=== PATIENT | female | born 1940 | race Caucasian/White ===

== ENCOUNTER 2020-09-27 11:42 | Outpatient (REF) | payer MEDICARE, SELFPAY ==
[2020-09-27 14:18] LABS: Estimated Average Glucose 169 mg/dL; Hemoglobin A1c % 7.5 %
[2020-09-27 14:43] LABS: Alanine Aminotransferase 17 U/L (0-31); Alkaline Phosphatase 111 U/L (39-117); Anion Gap 12 (12-20); Aspartate Amino Transferase 29 U/L (5-31); Bilirubin Total 0.7 mg/dL (0.0-1.0); Blood Urea Nitrogen 10 mg/dL (9-16); Calcium 9.6 mg/dL (8.4-10.2); Carbon Dioxide 30 mmol/L (22-29); Chloride 102 mmol/L (96-108); Cholesterol 132 mg/dL; Estimated Glomerular Filt Rate > 60; Glucose Fasting 151 mg/dL (60-99); HDL Cholesterol 35 mg/dL; LDL Cholesterol Calculated 83 mg/dl; Potassium 4.5 mmol/l (3.3-5.1); Sodium 139 mmol/L (135-145); Total Protein 8.6 g/dL (6.5-8.0); Triglycerides 73 mg/dL
[2020-09-27 17:18] LABS: Creatinine Urine 74.59 mg/dL; Microalbum/Creatinine Ratio Ur 9.3 ug/mg cr
== END 2020-09-27 11:43 | disposition home or self-care (01) ==
LOC: HO.HMGCLDS 11:42
PROVIDERS: PCP Internal Medicine; Visit Provider Internal Medicine
DX: G57.93 Unspecified mononeuropathy of bilateral lower limbs (principal); E78.5 Hyperlipidemia, unspecified; E11.9 Type 2 diabetes mellitus without complications; E66.9 Obesity, unspecified
CPT/HCPCS: 80053; 80061; 82043; 83036

== ENCOUNTER 2020-11-24 | Outpatient (REF) | payer MEDICARE, SELFPAY | END 2020-11-25 15:24 | disposition home or self-care (01) | LOC: HO.LAB | PROVIDERS: Visit Provider Internal Medicine | DX: Z20.822 Contact with and (suspected) exposure to COVID-19 (principal) | CPT/HCPCS: 36415; U0003 ==

== ENCOUNTER 2020-11-25 16:02 | Outpatient (REF) | payer MEDICARE, SELFPAY | END 2020-11-25 16:03 | disposition home or self-care (01) | LOC: HO.LAB 16:02 | PROVIDERS: Visit Provider Nurse Practitioner Family | DX: Z13.89 Encounter for screening for other disorder (principal) ==

== ENCOUNTER 2021-05-08 10:55 | Outpatient (REF) | payer MEDICARE, SELFPAY ==
--- NOTE | ~2021-05-08 | XR_ITS ---
EXAMINATION: XR RIBS, LEFT CLINICAL INFORMATION: Pleurodynia. COMPARISON: Previous chest x-rays, most recent January 2020 TECHNIQUE: Three views of the left ribs and 1 view of the chest were obtained. FINDINGS: The cardiac and mediastinal contours are stable. The descending thoracic aorta is tortuous but unchanged. The lung volumes are low. The lungs are clear. There is no pleural effusion or pneumothorax. There are surgical clips in the left axilla. There are old left 4th and 5th rib fractures. No acute rib fracture is seen. There are degenerative changes of the thoracic spine and scoliosis. XR/XR ribs LT min 3V w CXR1V IMPRESSION: No evidence for acute disease in the chest. No acute rib fracture or bone lesion. Surgical clips in the left axilla.
[2021-05-08 14:04] LABS: Estimated Average Glucose 151 mg/dL; Hemoglobin A1c % 6.9 %
[2021-05-08 14:11] LABS: Creatinine Urine 174.09 mg/dL; Microalbum/Creatinine Ratio Ur 12.6 ug/mg cr
[2021-05-08 14:23] LABS: Alanine Aminotransferase 16 U/L (0-31); Albumin Level 3.8 g/dL (3.5-5.0); Alkaline Phosphatase 109 U/L (39-117); Anion Gap 11 (12-20); Aspartate Amino Transferase 29 U/L (5-31); Bilirubin Total 0.8 mg/dL (0.0-1.0); Blood Urea Nitrogen 11 mg/dL (9-16); Calcium 9.7 mg/dL (8.4-10.2); Carbon Dioxide 27 mmol/L (22-29); Chloride 105 mmol/L (96-108); Cholesterol 137 mg/dL; Estimated Glomerular Filt Rate > 60; Glucose Fasting 115 mg/dL (60-99); HDL Cholesterol 34 mg/dL; LDL Cholesterol Calculated 87 mg/dl; Potassium 4.4 mmol/L (3.3-5.1); Sodium 139 mmol/L (135-145); Total Protein 8.3 g/dL (6.5-8.0); Triglycerides 80 mg/dL
== END 2021-05-08 10:56 | disposition home or self-care (01) ==
LOC: HO.HMGCX 10:55
PROVIDERS: PCP Internal Medicine; Visit Provider Internal Medicine
DX: R07.81 Pleurodynia (principal); E78.5 Hyperlipidemia, unspecified; E66.9 Obesity, unspecified; E11.9 Type 2 diabetes mellitus without complications
CPT/HCPCS: 36415; 71101; 80053; 80061; 82043; 83036

== ENCOUNTER 2021-09-04 15:10 | Outpatient (REF) | payer MEDICARE, SELFPAY ==
--- NOTE | ~2021-09-04 | XR_ITS ---
EXAMINATION: XR CHEST CLINICAL INFORMATION: Encounter for general adult medical exam COMPARISON: Chest and left rib x-rays April 2021 TECHNIQUE: 2 views of the chest were obtained. FINDINGS: The cardiac and mediastinal contours are stable. The thoracic aorta is tortuous but unchanged. The lungs are clear. There is no pleural effusion or pneumothorax. There are degenerative changes of the thoracic spine and mild scoliosis. There are surgical clips in the left axilla. XR/XR chest 2V IMPRESSION: No evidence for acute disease in the chest.
[2021-09-04 16:55] LABS: Estimated Average Glucose 154 mg/dL
[2021-09-04 17:02] LABS: B Type Natriuretic Peptide 81 pg/mL (<100)
[2021-09-04 17:05] LABS: Alanine Aminotransferase 17 U/L (0-31); Alkaline Phosphatase 110 U/L (39-117); Anion Gap 14 (12-20); Aspartate Amino Transferase 32 U/L (5-31); Bilirubin Total 0.7 mg/dL (0.0-1.0); Blood Urea Nitrogen 11 mg/dL (9-16); Calcium 10.1 mg/dL (8.4-10.2); Carbon Dioxide 25 mmol/L (22-29); Chloride 102 mmol/L (96-108); Estimated Glomerular Filt Rate 58; Glucose Random 247 mg/dL (60-115); Sodium 137 mmol/L (135-145); Total Protein 8.8 g/dL (6.5-8.0)
== END 2021-09-04 15:11 | disposition home or self-care (01) ==
LOC: HO.HMGCLDS 15:10
PROVIDERS: PCP Internal Medicine; Visit Provider Internal Medicine
DX: Z00.00 Encounter for general adult medical examination without abnormal findings (principal); E78.5 Hyperlipidemia, unspecified; R05.9 Cough, unspecified; E11.9 Type 2 diabetes mellitus without complications
CPT/HCPCS: 36415; 71046; 80053; 83036; 83880

== ENCOUNTER 2021-12-08 10:18 | Outpatient (REF) | payer MEDICARE, SELFPAY ==
--- NOTE | ~2021-12-08 | MM_ITS ---
EXAMINATION: BONE DENSITOMETRY CLINICAL INDICATION: Age-related osteoporosis without current pathological fracture. COMPARISON: Baseline BD dated 10/02/2019. TECHNIQUE: Using a [employer] DXA System (software version: 13.1) manufactured by [employer], dual-energy x-ray absorptiometry was performed of the lumbar spine and left hip. The images are of good technical quality. Summary results are attached. FINDINGS: AP SPINE L1-L3 (excluding L4): The data of L1-L4 has been changed to exclude the L4 vertebral body, because at this level may cause overestimation of lumbar spine density. Current: BMD 1.112 g/cm2, Z-score 0.7, T-score -0.5, normal, 8.8% increase from baseline (<5% change is not significant). Baseline: BMD 1.022 g/cm2. LEFT FEMUR, NECK: Current: BMD 0.492 g/cm2, Z-score -2.2, T-score -3.9, osteoporosis. Baseline: BMD 0.514 g/cm2. LEFT FEMUR, TOTAL: Current: BMD 0.707 g/cm2, Z-score -0.9, T-score -2.4, osteopenia, 3.1% increase from baseline (<5% change is not significant). Baseline: BMD 0.686 g/cm2. IDENTIFIED RISK FACTORS: Renal, secondary osteoporosis, menopause. HISTORY OF FRACTURE: None listed. MEDICATIONS: Vitamin D. MM/XR DEXA axial skeleton IMPRESSION: 1. DIAGNOSIS: Osteoporosis based on the lowest T-score value of -3.9 in the femoral neck applying World Health Organization criteria. 2. 10-YEAR FRACTURE RISK PREDICTION, FRAX: Major osteoporotic fracture (clinical spine, forearm, hip or shoulder) 22.1%. Hip fracture 10.9%. 3. Treatment Recommendations: NOF guidelines recommend consideration for treatment in postmenopausal women and men age 50 and older presenting with the following: -A hip or vertebral (clinical or morphometric) fracture. -T-score less than or equal to -2.5 at the femoral neck or spine after appropriate evaluation to exclude secondary causes. -Low bone mass at the hip or spine and a 10-year fracture probability by FRAX of greater than or equal to 3% for hip fracture or greater than or equal to 20% for major osteoporotic fracture based on the [place] adapted WHO algorithm. 4. Other Recommendations: All treatment decisions require clinical judgment and consideration of individual patient factors, including patient preferences, comorbidities, previous drug use, risk factors not captured in the FRAX model (e.g. frailty, falls, vitamin D deficiency, increased bone turnover, interval significant decline in bone density) and possible under or overestimation of fracture risk by FRAX. Additional medical evaluation for secondary cause of low bone mineral density may be appropriate. FUTURE SCAN RECOMMENDATION: People with diagnosed cases of osteoporosis or at high risk for fracture should have regular bone mineral density tests. For patients eligible for Medicare, routine testing is allowed once every 2 years. The testing frequency can be increased to one year for patients who have rapidly progressing disease, those who are receiving or discontinuing medical therapy to restore bone mass, or have additional risk factors.
== END 2021-12-08 10:19 | disposition home or self-care (01) ==
LOC: HO.MAMMO 10:18
PROVIDERS: PCP Internal Medicine; Visit Provider Internal Medicine
DX: Z13.820 Encounter for screening for osteoporosis (principal); M81.0 Age-related osteoporosis without current pathological fracture; Z78.0 Asymptomatic menopausal state; Z79.899 Other long term (current) drug therapy
CPT/HCPCS: 77080

== ENCOUNTER 2022-06-21 12:21 | Outpatient (REF) | payer MEDICARE, SELFPAY ==
[2022-06-21 13:49] LABS: MANUAL DIFF FLAG NO
[2022-06-21 13:56] LABS: Appearance Urine HAZY; Color Urine YELLOW; Glucose Urine UA NEG (NEG); Leukocyte Esterase Urine 3+ (NEG); Nitrite Urine NEG (NEG); Specific Gravity - Urine 1.015 (1.005-1.025); UACC Culture Trigger YES; Urine Blood TRACE (NEG); Urine Ketones NEG (NEG); Urine Protein NEG (NEG-TRACE)
[2022-06-21 14:04] LABS: Estimated Average Glucose 140 mg/dL; Hemoglobin A1c % 6.5 %
[2022-06-21 14:04] LABS: Squamous Epithelial Cell Urine 2+ /LPF
[2022-06-21 14:05] LABS: Bacteria Urine 4+ /LPF; WBC Urine TNTC /HPF (0-4)
[2022-06-21 14:06] LABS: WBC Clumps Urine NOTED
[2022-06-21 14:07] LABS: RBC Urine 0 /HPF (0)
[2022-06-21 14:14] LABS: Alanine Aminotransferase 13 U/L (0-31); Albumin Level 3.9 g/dL (3.5-5.0); Alkaline Phosphatase 107 U/L (39-117); Anion Gap 11 (12-20); Aspartate Amino Transferase 29 U/L (5-31); Bilirubin Total 0.6 mg/dL (0.0-1.0); Blood Urea Nitrogen 9 mg/dL (9-16); Calcium 9.3 mg/dL (8.4-10.2); Carbon Dioxide 28 mmol/L (22-29); Chloride 106 mmol/L (96-108); Estimated Glomerular Filt Rate > 60; Glucose Random 86 mg/dL (60-115); Potassium 4.1 mmol/L (3.3-5.1); Sodium 141 mmol/L (135-145); Total Protein 8.5 g/dL (6.5-8.0)
[2022-06-21 18:06] LABS: Basophils Percent Auto 0.7 % (0-2); Eosinophils Absolute Auto 0.1 X10*3/uL (0.0-0.4); Eosinophils Percent Auto 2.6 % (0-4); Hematocrit 36.9 % (37.0-47.0); Hemoglobin 11.7 g/dl (12.0-16.0); Imm Gran Abs Auto 0.01 X10*3/uL (0.00-0.03); Imm Gran Pct Auto 0.2 % (0.0-0.4); Lymphocytes Absolute Auto 1.5 X10*3/uL (1.2-4.9); Lymphocytes Percent Auto 36.3 % (20-40); Mean Corpuscular HGB Conc 31.7 g/dl (31.0-35.0); Mean Corpuscular Hemoglobin 31.3 pg (27.0-33.0); Mean Corpuscular Volume 98.7 fL (80.0-98.0); Mean Platelet Volume 11.6 fL (9.4-12.3); Monocytes Absolute Auto 0.4 X10*3/uL (0.1-1.2); Monocytes Percent Auto 10.2 % (2-11); Neutrophils Absolute Auto 2.1 x10*3/uL (2.0-8.3); Platelet Count 119 X10*3/uL (160-400); Red Blood Count 3.74 X10*6/uL (4.20-5.50); Red Cell Distribution Width 12.8 % (11.0-16.0); White Blood Count 4.2 X10*3/uL (4.8-10.8)
[2022-06-25 00:13] LABS: DRVVT 1:1 Mix Interpretation Not Indicated; Hexagonal Phase Neutralization Negative (Negative); PTT (LAC) Screen 42 sec (<=40)
[2022-06-26 23:02] LABS: PES - Abn Protein Band 1 1.7 g/dL (NONE DETECTED); Prot Elec - Albumin 3.9 g/dL (3.8-4.8); Prot Elec - Alpha1 0.3 g/dL (0.2-0.3); Prot Elec - Alpha2 0.8 g/dL (0.5-0.9); Prot Elec - Beta 1 0.4 g/dL (0.4-0.6); Prot Elec - Beta 2 0.5 g/dL (0.2-0.5); Prot Elec - Gamma 2.7 g/dL (0.8-1.7); Prot Elec - Total Protein 8.5 g/dL (6.1-8.1)
== END 2022-06-21 12:22 | disposition home or self-care (01) ==
LOC: HO.HMGCLDS 12:21
PROVIDERS: PCP Internal Medicine; Visit Provider Internal Medicine
DX: E78.5 Hyperlipidemia, unspecified (principal); I26.99 Other pulmonary embolism without acute cor pulmonale; E11.9 Type 2 diabetes mellitus without complications; Z20.822 Contact with and (suspected) exposure to COVID-19
CPT/HCPCS: 36415; 80053; 81001; 83036; 84165; 85025; 85597; 85613; 85730; 87086; 87088; 87186

== ENCOUNTER 2022-07-05 14:54 | Emergency (ER) | payer MEDICARE, SELFPAY ==
--- NOTE | ~2022-07-05 | XR_ITS ---
EXAMINATION: XR CHEST CLINICAL INFORMATION: Weakness COMPARISON: Chest x-ray 09/04/2021 TECHNIQUE: Frontal view of the chest was obtained. FINDINGS: The lungs appear clear. No airspace consolidation, pleural effusion, or pneumothorax. Cardiomediastinal silhouette is unchanged. No cardiomegaly or evidence pulmonary edema. Tortuosity of the descending thoracic aorta redemonstrated. No acute osseous injury. Surgical clips project along the lateral left chest wall, unchanged. XR/XR chest 1V IMPRESSION: No acute pulmonary process.
--- NOTE | ~2022-07-05 | CT_ITS ---
EXAMINATION: CT HEAD WITHOUT CONTRAST CLINICAL INFORMATION: Headache COMPARISON: None TECHNIQUE: Contiguous axial imaging was performed from the skull base to vertex without intravenous administration of contrast. This CT examination was performed using dose optimization techniques as appropriate, variously including the following: *Automated exposure control *Adjustment of mA and/or kV according to patient size (this includes techniques or standardized protocols for targeted exams where dose is matched to indication/reason for exam; i.e. extremities or head) *Use of iterative reconstruction technique DLP: 731 mGy-cm FINDINGS: There is no evidence of acute intracranial hemorrhage or territorial infarction. No abnormal mass effect or midline shift is seen. Wilde to white matter differentiation is well preserved. No extra-axial fluid collections are identified. Patchy periventricular and deep white matter hypodensities suggestive of chronic microangiopathic ischemic changes. No acute calvarial fracture. The mastoid air cells and visualized portions of the paranasal sinuses are well aerated. CT/CT head/brain wo con IMPRESSION: No CT evidence of acute intracranial pathology.
[2022-07-05 16:11] VITALS: BP 139/64; BP 170/95; PULSE 66; PULSE 79; RESP 22; TEMP 37.2; O2SAT 95; O2SAT 97; BMI 31.7
--- NOTE | 2022-07-05 16:24 | ECG_ITS ---
Test Reason : WEAKNESS Blood Pressure : / mmHG Vent. Rate : 056 BPM Atrial Rate : 056 BPM P-R Int : 146 ms QRS Dur : 106 ms QT Int : 448 ms P-R-T Axes : 008 -43 -14 degrees QTc Int : 432 ms Sinus bradycardia Left axis deviation Incomplete right bundle branch block Abnormal ECG No previous ECGs available Referred By: Tejas Gomez Electronically Signed By:DEBBIE WANG
--- NOTE | 2022-07-05 16:26 | ED.GENADULT ---
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 headache started since last night as a gradual onset of headache progressively getting worse since yesterday, headache is localized to the occipital area radiate down to the neck and right shoulder, no neck stiffness or photophobia, no nausea or vomiting, no weakness or numbness, associated with bilateral ear pain, no fever or chills, no sick contact, no covid symptoms, no runny nose or coughing, no cp, no sob, no abd pain, no diarrhea, normal BM yesterday, patient in the ED feels hungry and asking for food. headache and neck pain is more with movement or lifting right shoulder above her head. Patient declined any trauma or heavy lifting. Related Data Home Medications Medication Instructions Recorded Confirmed alcohol swabs (Alcohol Pads) pad topical 09/27/20 07/05/22 blood sugar diagnostic #10 ea 09/27/20 07/05/22 albuterol sulfate 90 mcg/actuation 2 puff inhalation Q8H asthma 06/29/22 07/05/22 aerosol inhaler (ProAir HFA) apixaban 5 mg (74 tabs) tablets in 5 ea PO DIRECTED 06/29/22 07/05/22 a dose pack (Elilifeaction gamesis DVT-PE Treat 30D Start) atorvastatin 40 mg tablet (Lipitor) 40 mg PO DAILY 06/29/22 07/05/22 cholecalciferol (vitamin D3) 50 50 mcg PO DAILY 06/29/22 07/05/22 mcg (2,000 unit) capsule (Vitamin D3) insulin glargine 100 unit/mL 40 unit subcut DAILY 06/29/22 07/05/22 subcutaneous solution (Lantus U-100 Insulin) Previous Rx's Medication Instructions Recorded diabetic supplies, miscellan. #1 ea 09/27/20 ProAir HFA 90 mcg/actuation 2 puff inhalation Q6H PRN 09/04/21 aerosol inhaler (albuterol sulfate) shortness of breath or wheezing #8.5 grams insulin lispro 100 unit/mL See Rx Instructions subcut 12/19/21 subcutaneous solution USEASDIRECTD 30 days #10 mL lancets 30 gauge #300 ea 12/27/21 insulin syringe-needle U-100 0.5 #400 ea 01/25/22 mL 31 gauge x 03/26 pen needle, diabetic 32 gauge x #300 ea 05/04/22 1/4 nitrofurantoin 100 mg PO Q12H 7 days #14 caps 06/22/22 monohydrate/macrocrystals 100 mg capsule (Macrobid) cyclobenzaprine 10 mg tablet 10 mg PO BID PRN muscle spasm #20 07/05/22 tabs nitrofurantoin 100 mg PO BID #14 caps 07/05/22 monohydrate/macrocrystals 100 mg capsule (Macrobid) Allergies Allergy/AdvReac Type Severity Reaction Status Date / Time Seasonal Allergies Allergy Runny Nose Verified 07/05/22 14:00 Review of Systems Review of Systems: All other systems are reviewed and are negative Constitutional: Reports as per HPI and Reports no additional constitutional complaints Eyes: Reports as per HPI and Reports no additional eye complaints Reports system reviewed and no additional complaints, except as documented Cardiovascular: Reports as per HPI and Reports no additional cardiovascular complaints Respiratory: Reports as per HPI and Reports no additional respiratory complaints Gastrointestinal: Reports as per HPI and Reports no additional gastrointestinal complaints Genitourinary: Reports no additional female genitourinary complaints Musculoskeletal: Reports no additional musculoskeletal complaints Skin/Breast: Reports system reviewed and no additional complaints, except as docu Psychiatric: Reports no additional psychiatric complaints Endocrine: Reports no additional endocrine complaints Hematologic/Lymphatic: Reports no additional hematologic/lymphatic complaints Allergic/Immunologic: Reports no additional allergic/immunologic complaints Reports system reviewed and no additional complaints, except as documented and Reports Abnormal speech present FOR[facility] Past Medical History Medical History Annual physical exam Cough Diabetes Fibromyalgia Hyperlipidemia Neuropathy of both feet Obesity Osteoarthritis of both knees Osteoporosis Rib pain on left side Surgical History No pertinent past surgical history S/P lumpectomy, left breast Status post cataract surgery Family History Family History Father Colon cancer Mother Diabetes mellitus Other Substance use disorder Social History Social History Household Members: None Housing: Apartment Alcohol intake: never Patient Tobacco Use Status: Never used Tobacco e-Cigarette/Vaping Use: Never Used Advance Directives: No Advance Directives Information Provided: No service: No Current occupational status: retired Cognitive needs: No Hearing needs: No Vision needs: No Physical Exam ED Vital Signs: Vital Signs - 24 hr 07/05/22 16:11 07/05/22 19:21 Temperature 98.9 F Pulse Rate 66 77 Respiratory Rate 22 H 16 Blood Pressure 139/64 131/67 Pulse Oximetry 97 98 Oxygen Delivery Method Room Air Room Air BMI result Body Mass Index 31.7 vital signs have been reviewed as appeared to be correct. Blood pressure normal. Heart rate normal. Respiration rate normal. Temperature normal. Oxygen saturation normal. Appearance: Alert. Oriented X3. No acute distress. Head: Normal external exam. Normocephalic. Atraumatic. No Richardson signs noted. No raccoon eyes noted , increases neck pain and right shoulder pain turned the head to the right Eyes: PERRLA. EOMI. Conjunctiva and sclera normal. Eyelids normal. ENT: TM's Normal. Pharynx normal. Uvula midline. Moist mucous membranes. No trismus noted. No drooling noted. No muffled voice noted. Neck: Normal inspection. Neck supple. FROM. No adenopathy. Thyroid Normal. No meningeal signs. No neck mass noted. CVS: Normal heart rate and rhythm. Heart sound normal. No murmurs noted. Pulses normal throughout. Respiratory: No respiratory distress. Painless inspiration. Breath sounds normal. No wheezes/rales/rhonchi noted. Chest nontender. No accessory muscle usage noted or decreased air movement noted. Abdomen: Soft and nontender. Bowel sounds normal in all 4 quadrants. No distention noted. No organomegaly noted. No visible injury noted. Back: No CVA tenderness. Full range of motion noted. Skin: Skin warm and dry. Normal skin color. Normal skin turgor. No rashes/lesions/lacerations noted. Extremities: No lower extremity edema. Extremities exhibit normal range of motion. Extremities nontender. Neuro: Oriented X 3. Cranial nerve exam: II-XII are grossly intact No motor deficit. No sensory deficit. Reflexes normal. Course Course Course Narrative: 82-year-old female came in for head, neck pain, and right shoulder pain started since yesterday, physical exam, your exam, and head CT is consistent with musculoskeletal underlying close, repeat Neuro exam is unremarkable. There was a concern of another PE patient is on Eliquis, normal RR and O2 sat Patient has no chest pain or SOB. will start on Macrobid for UTI and patient was encouraged to drink plenty of fluids. was instructed to return if worsening of symptoms. Medical Decision Making Lab Data Lab results reviewed: Yes I reviewed the patient's lab results. Result diagrams: 07/05/22 16:35 07/05/22 16:35 Labs: Lab Results 07/05/22 07/05/22 07/05/22 Range/Units 16:35 16:35 16:35 WBC 6.0 (4.8-10.8) X10*3/uL RBC 3.64 L (4.20-5.50) X10*6/uL Hgb 11.4 L (12.0-16.0) g/dl Hct 35.3 L (37.0-47.0) % MCV 97.0 (80.0-98.0) fL MCH 31.3 (27.0-33.0) pg MCHC 32.3 (31.0-35.0) g/dl RDW 12.6 (11.0-16.0) % Plt Count 154 L D (160-400) X10*3/uL MPV 9.7 (9.4-12.3) fL Immature Gran % (Auto) 0.3 (0.0-0.4) % Neut % (Auto) 63.7 (45-73) % Lymph % (Auto) 25.2 (20-40) % [place] % (Auto) 8.1 (2-11) % Eos % (Auto) 2.2 (0-4) % Baso % (Auto) 0.5 (0-2) % Lymph # (Auto) 1.5 (1.2-4.9) X10*3/uL [place] # (Auto) 0.5 (0.1-1.2) X10*3/uL Eos # (Auto) 0.1 (0.0-0.4) X10*3/uL Baso # (Auto) 0.0 (0.0-0.2) X10*3/uL Abs Immat Gran (auto) 0.02 (0.00-0.03) X10*3/uL Absolute Neuts (auto) 3.8 (2.0-8.3) x10*3/uL Absolute Nucleated RBC 0.000 (0.0-0.012) X10*3/uL Nucleated RBC % (auto) 0.0 (0.0-0.2) /100WBC Sodium 140 (135-145) mmol/L Potassium 4.5 (3.3-5.1) mmol/L Chloride 104 (96-108) mmol/L Carbon Dioxide 26 (22-29) mmol/L Anion Gap 15 (12-20) BUN 11 (9-16) mg/dL Creatinine 0.77 (0.5-1.4) mg/dL Estim Creat Clear Calc 61.0 Estimated GFR > 60 POC Glucose (60-115) mg/dL Random Glucose 120 H (60-115) mg/dL Calcium 9.9 D (8.4-10.2) mg/dL Total Bilirubin 0.7 (0.0-1.0) mg/dL Direct Bilirubin 0.3 (0.0-0.5) mg/dL AST 29 (5-31) U/L ALT 15 (0-31) U/L Alkaline Phosphatase 106 (39-117) U/L Troponin I High Sens < 3.5 (<3.5-17.0) ng/L B-Natriuretic Peptide (<100) pg/mL Total Protein 8.7 H (6.5-8.0) g/dL Albumin 3.8 (3.5-5.0) g/dL Lipase 8 (8-78) U/L Urine Color Urine Appearance Urine pH (5.0-8.0) Ur Specific [place] (1.005-1.025) Urine Protein (Neg-Trace) mg/dL Urine Glucose (UA) (Negative) mg/dL Urine Ketones (Negative) mg/dL Urine Blood (Negative) Urine Nitrite (Negative) Ur Leukocyte Esterase (Negative) Urine RBC (0-2) /HPF Urine WBC (0-5) /HPF Ur Squamous Epith Cells (0-2) /HPF Urine Bacteria (None Seen) Hyaline Casts (0-2) /LPF COVID-19 (MELANIE) (Negative) COVID-19 Clin Com 07/05/22 07/05/22 07/05/22 Range/Units 16:35 17:19 18:13 WBC (4.8-10.8) X10*3/uL RBC (4.20-5.50) X10*6/uL Hgb (12.0-16.0) g/dl Hct (37.0-47.0) % MCV (80.0-98.0) fL MCH (27.0-33.0) pg MCHC (31.0-35.0) g/dl RDW (11.0-16.0) % Plt Count (160-400) X10*3/uL MPV (9.4-12.3) fL Immature Gran % (Auto) (0.0-0.4) % Neut % (Auto) (45-73) % Lymph % (Auto) (20-40) % [place] % (Auto) (2-11) % Eos % (Auto) (0-4) % Baso % (Auto) (0-2) % Lymph # (Auto) (1.2-4.9) X10*3/uL [place] # (Auto) (0.1-1.2) X10*3/uL Eos # (Auto) (0.0-0.4) X10*3/uL Baso # (Auto) (0.0-0.2) X10*3/uL Abs Immat Gran (auto) (0.00-0.03) X10*3/uL Absolute Neuts (auto) (2.0-8.3) x10*3/uL Absolute Nucleated RBC (0.0-0.012) X10*3/uL Nucleated RBC % (auto) (0.0-0.2) /100WBC Sodium (135-145) mmol/L Potassium (3.3-5.1) mmol/L Chloride (96-108) mmol/L Carbon Dioxide (22-29) mmol/L Anion Gap (12-20) BUN (9-16) mg/dL Creatinine (0.5-1.4) mg/dL Estim Creat Clear Calc Estimated GFR POC Glucose 95 (60-115) mg/dL Random Glucose (60-115) mg/dL Calcium (8.4-10.2) mg/dL Total Bilirubin (0.0-1.0) mg/dL Direct Bilirubin (0.0-0.5) mg/dL AST (5-31) U/L ALT (0-31) U/L Alkaline Phosphatase (39-117) U/L Troponin I High Sens (<3.5-17.0) ng/L B-Natriuretic Peptide 48 (<100) pg/mL Total Protein (6.5-8.0) g/dL Albumin (3.5-5.0) g/dL Lipase (8-78) U/L Urine Color Urine Appearance Urine pH (5.0-8.0) Ur Specific [place] (1.005-1.025) Urine Protein (Neg-Trace) mg/dL Urine Glucose (UA) (Negative) mg/dL Urine Ketones (Negative) mg/dL Urine Blood (Negative) Urine Nitrite (Negative) Ur Leukocyte Esterase (Negative) Urine RBC (0-2) /HPF Urine WBC (0-5) /HPF Ur Squamous Epith Cells (0-2) /HPF Urine Bacteria (None Seen) Hyaline Casts (0-2) /LPF COVID-19 (MELANIE) Negative (Negative) COVID-19 Clin Com See Note 07/05/22 Range/Units 19:00 WBC (4.8-10.8) X10*3/uL RBC (4.20-5.50) X10*6/uL Hgb (12.0-16.0) g/dl Hct (37.0-47.0) % MCV (80.0-98.0) fL MCH (27.0-33.0) pg MCHC (31.0-35.0) g/dl RDW (11.0-16.0) % Plt Count (160-400) X10*3/uL MPV (9.4-12.3) fL Immature Gran % (Auto) (0.0-0.4) % Neut % (Auto) (45-73) % Lymph % (Auto) (20-40) % [place] % (Auto) (2-11) % Eos % (Auto) (0-4) % Baso % (Auto) (0-2) % Lymph # (Auto) (1.2-4.9) X10*3/uL [place] # (Auto) (0.1-1.2) X10*3/uL Eos # (Auto) (0.0-0.4) X10*3/uL Baso # (Auto) (0.0-0.2) X10*3/uL Abs Immat Gran (auto) (0.00-0.03) X10*3/uL Absolute Neuts (auto) (2.0-8.3) x10*3/uL Absolute Nucleated RBC (0.0-0.012) X10*3/uL Nucleated RBC % (auto) (0.0-0.2) /100WBC Sodium (135-145) mmol/L Potassium (3.3-5.1) mmol/L Chloride (96-108) mmol/L Carbon Dioxide (22-29) mmol/L Anion Gap (12-20) BUN (9-16) mg/dL Creatinine (0.5-1.4) mg/dL Estim Creat Clear Calc Estimated GFR POC Glucose (60-115) mg/dL Random Glucose (60-115) mg/dL Calcium (8.4-10.2) mg/dL Total Bilirubin (0.0-1.0) mg/dL Direct Bilirubin (0.0-0.5) mg/dL AST (5-31) U/L ALT (0-31) U/L Alkaline Phosphatase (39-117) U/L Troponin I High Sens (<3.5-17.0) ng/L B-Natriuretic Peptide (<100) pg/mL Total Protein (6.5-8.0) g/dL Albumin (3.5-5.0) g/dL Lipase (8-78) U/L Urine Color Yellow Urine Appearance Clear Urine pH 7.0 (5.0-8.0) Ur Specific [place] <= 1.005 (1.005-1.025) Urine Protein Negative (Neg-Trace) mg/dL Urine Glucose (UA) Negative (Negative) mg/dL Urine Ketones Negative (Negative) mg/dL Urine Blood Negative (Negative) Urine Nitrite Negative (Negative) Ur Leukocyte Esterase Large (3+) H (Negative) Urine RBC 0-2 (0-2) /HPF Urine WBC 21-50 H (0-5) /HPF Ur Squamous Epith Cells 0-2 (0-2) /HPF Urine Bacteria 4+ (None Seen) Hyaline Casts 0-2 (0-2) /LPF COVID-19 (MELANIE) (Negative) COVID-19 Clin Com Imaging Data CT scan - head: Attestation: I personally reviewed and interpreted this imaging study as follows: Radiologist's impression: No CT evidence of acute intracranial pathology. ? Chest x-ray: Attestation: I personally reviewed and interpreted this imaging study as follows: Radiologist's impression: no acute pulmonary process. Discharge Plan Discharge Clinical Impression: Acute myofascial pain Patient Disposition: Home, Self-Care Instructions: Musculoskeletal Pain (ED) Prescriptions: New cyclobenzaprine 10 mg tablet 10 mg PO BID PRN (Reason: muscle spasm) Qty: 20 0RF nitrofurantoin monohyd/m-cryst [Macrobid] 100 mg capsule 100 mg PO BID Qty: 14 0RF Rx Instructions: must administer with a meal/food No Action insulin lispro 100 unit/mL solution See Rx Instructions subcut USEASDIRECTD 30 Days Qty: 10 0RF Rx Instructions: 120-200 4units, 200-300 8units, >300 10 units subcut 3times at day at mealtime subcut use as directed; (DME) lancets 30 gauge misc See Rx Instructions .ROUTE QID Qty: 300 3RF Rx Instructions: As directed to test blood sugar up to 3 times per day (DME) insulin syringe-needle U-100 0.5 mL 31 gauge x 5/16 syringe See Rx Instructions .ROUTE .MEDSUPPLY Qty: 400 3RF Rx Instructions: Use to inject insulin 4 times per day (DME) pen needle, diabetic 32 gauge x 1/4 needle See Rx Instructions subcut TID Qty: 300 3RF Rx Instructions: As directed to inject insulin four times a day nitrofurantoin monohyd/m-cryst [Macrobid] 100 mg capsule 100 mg PO Q12H 7 Days Qty: 14 0RF Rx Instructions: must administer with a meal/food Eliquis DVT-PE Treat 30D Start 5 mg (74 tabs) tablets,dose pack 5 ea PO DIRECTED albuterol sulfate [ProAir HFA] 90 mcg/actuation HFA aerosol inhaler 2 puff inhalation Q8H atorvastatin [Lipitor] 40 mg tablet 40 mg PO DAILY insulin glargine [Lantus U-100 Insulin] 100 unit/mL solution 40 unit subcut DAILY cholecalciferol (vitamin D3) [Vitamin D3] 50 mcg (2,000 unit) capsule 50 mcg PO DAILY (DME) Accu-Chek Guide test strips Strip See Rx Instructions .ROUTE .MEDSUPPLY Qty: 10 Rx Instructions: As directed alcohol swabs [Alcohol Pads] Pads, Medicated topical (DME) diabetic supplies, miscellan. Misc See Rx Instructions .ROUTE .MEDSUPPLY Qty: 1 0RF Rx Instructions: diabetic shoes albuterol sulfate [ProAir HFA] 90 mcg/actuation HFA aerosol inhaler 2 puff inhalation Q6H PRN (Reason: shortness of breath or wheezing) Qty: 8.5 3RF Rx Instructions: brand name only Referrals: Jing Yen MD [Primary Care Provider] -
[2022-07-05 16:41] LABS: MANUAL DIFF FLAG NO
[2022-07-05 16:44] LABS: Basophils Percent Auto 0.5 % (0-2); Eosinophils Absolute Auto 0.1 X10*3/uL (0.0-0.4); Eosinophils Percent Auto 2.2 % (0-4); Hematocrit 35.3 % (37.0-47.0); Hemoglobin 11.4 g/dl (12.0-16.0); Imm Gran Abs Auto 0.02 X10*3/uL (0.00-0.03); Imm Gran Pct Auto 0.3 % (0.0-0.4); Lymphocytes Absolute Auto 1.5 X10*3/uL (1.2-4.9); Lymphocytes Percent Auto 25.2 % (20-40); Mean Corpuscular HGB Conc 32.3 g/dl (31.0-35.0); Mean Corpuscular Hemoglobin 31.3 pg (27.0-33.0); Mean Platelet Volume 9.7 fL (9.4-12.3); Monocytes Absolute Auto 0.5 X10*3/uL (0.1-1.2); Monocytes Percent Auto 8.1 % (2-11); Neutrophils Absolute Auto 3.8 x10*3/uL (2.0-8.3); Neutrophils Percent Auto 63.7 % (45-73); Platelet Count 154 X10*3/uL (160-400); Red Blood Count 3.64 X10*6/uL (4.20-5.50); Red Cell Distribution Width 12.6 % (11.0-16.0)
[2022-07-05] MEDS: Acetaminophen 325 MG TABLET 650 MG PO (16:46)
[2022-07-05] MEDS: 0.9 % Sodium Chloride 1,000 ML 999 ML IV (16:47)
[2022-07-05 17:03] LABS: B Type Natriuretic Peptide 48 pg/mL (<100); Troponin-I High Sensitivity < 3.5 ng/L (<3.5-17.0)
[2022-07-05 17:09] LABS: Alanine Aminotransferase 15 U/L (0-31); Albumin Level 3.8 g/dL (3.5-5.0); Alkaline Phosphatase 106 U/L (39-117); Anion Gap 15 (12-20); Aspartate Amino Transferase 29 U/L (5-31); Bilirubin Direct 0.3 mg/dL (0.0-0.5); Bilirubin Total 0.7 mg/dL (0.0-1.0); Blood Urea Nitrogen 11 mg/dL (9-16); Calcium 9.9 mg/dL (8.4-10.2); Carbon Dioxide 26 mmol/L (22-29); Chloride 104 mmol/L (96-108); Estimated Glomerular Filt Rate > 60; Glucose Random 120 mg/dL (60-115); Lipase 8 U/L (8-78); Potassium 4.5 mmol/L (3.3-5.1); Sodium 140 mmol/L (135-145); Total Protein 8.7 g/dL (6.5-8.0)
[2022-07-05 17:47] LABS: COVID-19 Test Negative (Negative)
[2022-07-05 18:17] LABS: Glucose, Whole Blood 95 mg/dL (60-115)
[2022-07-05 19:09] LABS: Appearance Urine Clear; Color Urine Yellow; Glucose Urine UA Negative (Negative); Leukocyte Esterase Urine Large (3+) (Negative); Nitrite Urine Negative (Negative); Specific Gravity - Urine <= 1.005 (1.005-1.025); Urine Blood Negative (Negative); Urine Ketones Negative (Negative); Urine Protein Negative (Neg-Trace)
[2022-07-05 19:12] LABS: Bacteria Urine 4+ (None Seen); Hyaline Casts Urine 0-2 /LPF (0-2); RBC Urine 0-2 /HPF (0-2); Squamous Epithelial Cell Urine 0-2 /HPF (0-2); UACC Culture Trigger YES; WBC Urine 21-50 /HPF (0-5)
[2022-07-05 19:21] VITALS: BP 131/67; PULSE 77; RESP 16; O2SAT 98
[2022-07-05] MEDS: Morphine Sulfate 2 MG/ML CARTRIDGE 1 MG IVPUSH (19:36)
[2022-07-05 20:00] VITALS: BP 148/70; PULSE 68
== END 2022-07-05 21:10 | disposition home or self-care (01) ==
PROVIDERS: Emergency Provider Emergency Medicine; PCP Internal Medicine
DX: M79.10 Myalgia, unspecified site (principal); R51.9 Headache, unspecified; R53.1 Weakness; Z20.822 Contact with and (suspected) exposure to COVID-19; E11.9 Type 2 diabetes mellitus without complications; E78.5 Hyperlipidemia, unspecified; Z86.711 Personal history of pulmonary embolism; Z79.02 Long term (current) use of antithrombotics/antiplatelets; Z79.01 Long term (current) use of anticoagulants; Z79.4 Long term (current) use of insulin; Z79.899 Other long term (current) drug therapy
CPT/HCPCS: 36415; 70450; 71045; 80048; 80076; 81001; 82947; 83690; 83880; 84484; 85025; 87086; 87088; 87186; 87635; 93005; 96361; 96374; 99284; J2270

== ENCOUNTER 2022-07-19 14:19 | Outpatient (REF) | payer MEDICARE, SELFPAY ==
--- NOTE | ~2022-07-19 | US_ITS ---
EXAMINATION: US RETROPERITONEAL LIMITED (RENAL ONLY) CLINICAL INFORMATION: Hyperlipidemia, gross hematuria. COMPARISON: None TECHNIQUE: Real-time imaging of the kidneys. FINDINGS: RIGHT KIDNEY: 10.8 x 5.8 x 6.2 cm (SAG x AP x TRV). The kidney is normal in size, contour, and echogenicity. Renal cortical thickness is normal. No calculi or focal parenchymal lesions. No hydronephrosis. LEFT KIDNEY: 11.3 x 6.4 x 6.2 cm (SAG x AP x TRV). The kidney is normal in size, contour, and echogenicity. Renal cortical thickness is normal. No calculi or focal parenchymal lesions. No hydronephrosis. US/US renal BI IMPRESSION: Unremarkable sonographic imaging of the kidneys. Specifically, no renal calculi or hydronephrosis of either kidney.
== END 2022-07-19 14:20 | disposition home or self-care (01) ==
LOC: HO.HMGCX 14:19
PROVIDERS: PCP Internal Medicine; Visit Provider Internal Medicine
DX: R31.0 Gross hematuria (principal); E78.5 Hyperlipidemia, unspecified
CPT/HCPCS: 76775

== ENCOUNTER 2022-08-06 13:37 | Outpatient (REF) | payer MEDICARE, SELFPAY ==
--- NOTE | ~2022-08-06 | US_ITS ---
EXAMINATION: US PELVIS LIMITED (BLADDER) CLINICAL INFORMATION: Gross hematuria. COMPARISON: Ultrasound renal 07/19/2022. TECHNIQUE: Real-time imaging of the bladder. FINDINGS: BLADDER: Well distended and normal. Bilateral ureteral jets are demonstrated. Prevoid bladder volume is 452 mL. Postvoid bladder volume is 10.3 mL. US/US bladder IMPRESSION: Unremarkable bladder ultrasound..
== END 2022-08-06 13:38 | disposition home or self-care (01) ==
LOC: HO.HMGCX 13:37
PROVIDERS: PCP Internal Medicine; Visit Provider Internal Medicine
DX: R31.0 Gross hematuria (principal)
CPT/HCPCS: 76857

== ENCOUNTER 2022-09-20 15:15 | Outpatient (REF) | payer OTHER, SELFPAY ==
--- NOTE | ~2022-09-20 | CT_ITS ---
EXAMINATION: CT ANGIOGRAM OF THE CHEST WITH AND WITHOUT CONTRAST (CT PULMONARY ANGIOGRAM FOR PE) CLINICAL INFORMATION: Reason for Exam h/o pE in may 2022, [facility] COMPARISON: Previous chest x-ray June 2022 TECHNIQUE: Prior to contrast administration, noncontrast localization images were obtained. Subsequently, multidetector volumetric imaging was performed from the thoracic inlet to below the diaphragms following the administration of 65 mL Omnipaque 350 intravenous contrast. No contrast reaction reported Sagittal, coronal, and MIP oblique sagittal reformatted images were obtained on the CT workstation, uploaded to PACS, and reviewed. This CT examination was performed using dose optimization techniques as appropriate, variously including the following: *Automated exposure control *Adjustment of mA and/or kV according to patient size (this includes techniques or standardized protocols for targeted exams where dose is matched to indication/reason for exam; i.e. extremities or head) *Use of iterative reconstruction technique Total exam dose-length product 91 mGy-cm FINDINGS: QUALITY OF STUDY/CONTRAST BOLUS: Satisfactory. PULMONARY ARTERIES: No central or segmental pulmonary emboli. THORACIC AORTA: No aneurysm or dissection. Thoracic aorta is tortuous. LUNG: No focal consolidation, nodules or masses. Increased peripheral reticular markings in the anterior left upper lobe, question related to previous chest wall radiation. Scarring or subsegmental atelectasis at the lung bases. PLEURA: No pleural effusion or pneumothorax. MEDIASTINUM: Normal heart size. No pericardial effusion. No hilar or mediastinal lymphadenopathy. No evidence of septal bowing or right heart strain. CHEST WALL/AXILLA: No axillary or internal mammary lymphadenopathy. Surgical clips in the left axilla. Asymmetric increased soft tissue around left nipple. OSSEOUS STRUCTURES: No acute or suspicious osseous abnormality. Degenerative changes of the spine. UPPER ABDOMEN: Unremarkable. No reflux of contrast into the hepatic veins to suggest elevated right heart pressures. CT/CT angio chest PE protocol IMPRESSION: No evidence of pulmonary embolism. VTE: negative
[2022-09-20] MEDS: iohexoL 350 MG/ML 100 ML INFUS..BTL IV (15:38)
== END 2022-09-20 15:16 | disposition home or self-care (01) ==
LOC: HO.CT 15:15
PROVIDERS: PCP Internal Medicine; Visit Provider Internal Medicine
DX: I26.99 Other pulmonary embolism without acute cor pulmonale (principal)
CPT/HCPCS: 71275; Q9967

== ENCOUNTER 2022-12-05 13:48 | Outpatient (REF) | payer OTHER, SELFPAY ==
[2022-12-05 16:34] LABS: MANUAL DIFF FLAG NO
[2022-12-05 16:44] LABS: Basophils Percent Auto 0.4 % (0-2); Eosinophils Absolute Auto 0.2 X10*3/uL (0.0-0.4); Eosinophils Percent Auto 3.3 % (0-4); Hematocrit 37.2 % (37.0-47.0); Hemoglobin 11.7 g/dl (12.0-16.0); Imm Gran Abs Auto 0.01 X10*3/uL (0.00-0.03); Imm Gran Pct Auto 0.2 % (0.0-0.4); Lymphocytes Absolute Auto 1.9 X10*3/uL (1.2-4.9); Lymphocytes Percent Auto 40.1 % (20-40); Mean Corpuscular HGB Conc 31.5 g/dl (31.0-35.0); Mean Corpuscular Hemoglobin 30.6 pg (27.0-33.0); Mean Corpuscular Volume 97.4 fL (80.0-98.0); Mean Platelet Volume 11.4 fL (9.4-12.3); Monocytes Absolute Auto 0.5 X10*3/uL (0.1-1.2); Monocytes Percent Auto 9.5 % (2-11); Neutrophils Absolute Auto 2.3 x10*3/uL (2.0-8.3); Neutrophils Percent Auto 46.5 % (45-73); Platelet Count 125 X10*3/uL (160-400); Red Blood Count 3.82 X10*6/uL (4.20-5.50); Red Cell Distribution Width 12.7 % (11.0-16.0); White Blood Count 4.8 X10*3/uL (4.8-10.8)
[2022-12-05 16:48] LABS: Estimated Average Glucose 126 mg/dL
[2022-12-05 17:04] LABS: Alanine Aminotransferase 17 U/L (0-31); Albumin Level 3.7 g/dL (3.5-5.0); Alkaline Phosphatase 108 U/L (39-117); Anion Gap 12 (12-20); Aspartate Amino Transferase 31 U/L (5-31); Bilirubin Total 0.7 mg/dL (0.0-1.0); Blood Urea Nitrogen 14 mg/dL (9-16); Calcium 9.5 mg/dL (8.4-10.2); Carbon Dioxide 25 mmol/L (22-29); Chloride 106 mmol/L (96-108); Estimated Glomerular Filt Rate > 60; Glucose Random 116 mg/dL (60-115); Potassium 3.8 mmol/L (3.3-5.1); Sodium 139 mmol/L (135-145); Total Protein 8.2 g/dL (6.5-8.0)
[2022-12-05 17:13] LABS: TSH reflex Free T4 1.49 uIU/mL (0.32-4.0)
[2022-12-07 14:18] LABS: IgA 339 mg/dL (70-320); IgG 3085 mg/dL (600-1540); IgM 245 mg/dL (50-300)
== END 2022-12-05 13:49 | disposition home or self-care (01) ==
LOC: HO.HMGCLDS 13:48
PROVIDERS: PCP Internal Medicine; Visit Provider Internal Medicine
DX: E11.9 Type 2 diabetes mellitus without complications (principal); E78.5 Hyperlipidemia, unspecified; D64.9 Anemia, unspecified
CPT/HCPCS: 36415; 80053; 82784; 83036; 84443; 85025; 86334

== ENCOUNTER 2023-09-24 13:06 | Emergency (ER) | payer OTHER, SELFPAY ==
--- NOTE | ~2023-09-24 | CT_ITS ---
EXAMINATION: CT ABDOMEN AND PELVIS WITH CONTRAST CLINICAL INFORMATION: Right-sided abdominal pain COMPARISON: None available. TECHNIQUE: Multidetector volumetric images were obtained from the superior aspect of the liver through the pubic symphysis following administration 85 mL of Omnipaque 350 intravenous contrast. Sagittal and coronal reformatted images were obtained on the technologist's workstation. Oral contrast: No This CT examination was performed using dose optimization techniques as appropriate, variously including the following: *Automated exposure control *Adjustment of mA and/or kV according to patient size (this includes techniques or standardized protocols for targeted exams where dose is matched to indication/reason for exam; i.e. extremities or head) *Use of iterative reconstruction technique DLP: 640 mGy-cm FINDINGS: LUNG BASES: Limited lower thoracic images show atelectasis or scar at the left lung base and mild fibrotic opacities at both lung bases. LIVER, GALLBLADDER, AND BILIARY TREE: The liver is normal in size, shape, and attenuation. No focal hepatic lesion or biliary ductal dilatation is present. The gallbladder is unremarkable with no evidence of radiopaque gallstones, gallbladder wall thickening, or obvious pericholecystic inflammatory changes. PANCREAS: Unremarkable. SPLEEN: Unremarkable. ADRENAL GLANDS: Unremarkable. KIDNEYS AND URETERS: A 6 mm low-density lesion extends from the upper pole cortex of the left kidney. Presumably a cyst, the lesion is too small to characterize. No additional follow-up imaging is recommended. The kidneys are otherwise normal in size, shape, and attenuation. No hydronephrosis, hydroureter, or calculi seen. No perinephric stranding. BLADDER: Unremarkable. GASTROINTESTINAL TRACT: There is a questionable area of mural thickening of the proximal descending colon, extending for approximately 5 cm in the right midabdomen. No pericolic infiltration or adenopathy is evident. The appendix is unremarkable, as is the small bowel. The rectum is distended by fecal material. ABDOMINAL WALL: There is a very small fat-containing umbilical hernia. LYMPH NODES: Normal. VASCULAR: Unremarkable. PELVIC VISCERA: Unremarkable. OSSEOUS STRUCTURES: There are degenerative changes in the lumbar spine. No suspicious bone lesions are evident. CT/CT abdomen pelvis w IV con IMPRESSION: 1. Questionable circumferential thickening of the descending colon, extending for 5 cm, versus underdistention. If not done recently, consider colonoscopy, as a colorectal neoplasm is not excluded. 2. No acute findings otherwise in the abdomen or pelvis. Fleischner guidelines were followed.
[2023-09-24 13:16] VITALS: BP 198/76; PULSE 72; RESP 20; TEMP 36.7; O2SAT 97; BMI 31.6
--- NOTE | 2023-09-24 13:17 | ED_ITS ---
HPI - General Adult General Stated complaint: R Side Pain No Injury Related Data Home Medications Medication Instructions Recorded Confirmed alcohol swabs (Alcohol Pads) pad topical DAILY PRN Disinfection 09/27/20 12/05/22 blood sugar diagnostic #10 ea 09/27/20 12/07/22 Previous Rx's Medication Instructions Recorded diabetic supplies, miscellan. #1 ea 09/27/20 ProAir HFA 90 mcg/actuation 2 puff inhalation Q6H PRN 09/04/21 aerosol inhaler (albuterol sulfate) shortness of breath or wheezing #8.5 grams albuterol sulfate 90 mcg/actuation 2 puff inhalation Q8H asthma #8.5 07/06/22 aerosol inhaler (ProAir HFA) grams lancets 30 gauge #300 ea 07/23/22 pen needle, diabetic 32 gauge x #400 ea 07/23/22 1/4 atorvastatin 40 mg tablet (Lipitor) 40 mg PO DAILY #90 tabs 07/30/22 insulin syringe-needle U-100 0.5 #400 ea 08/01/22 mL 31 gauge x 16 blood sugar diagnostic (Accu-Chek #100 ea 08/09/22 Guide test strips) insulin glargine 100 unit/mL 40 unit (0.4 mL) subcut DAILY #40 08/09/22 subcutaneous solution (Lantus mL U-100 Insulin) cholecalciferol (vitamin D3) 50 50 mcg PO DAILY #90 caps 12/05/22 mcg (2,000 unit) capsule (Vitamin D3) insulin lispro 100 unit/mL See Rx Instructions subcut 12/05/22 subcutaneous solution USEASDIRECTD 90 days #30 mL Allergies Allergy/AdvReac Type Severity Reaction Status Date / Time Seasonal Allergies Allergy Runny Nose Verified 09/24/23 13:16 [facility] Past Medical History Medical History Annual physical exam Cough Diabetes Fibromyalgia Hyperlipidemia Neuropathy of both feet Obesity Osteoarthritis of both knees Osteoporosis Rib pain on left side Surgical History No pertinent past surgical history S/P lumpectomy, left breast Status post cataract surgery Family History Family History Father Colon cancer Mother Diabetes mellitus Other Substance use disorder Social History Social History Household Members: None Housing: Apartment Alcohol intake: never Patient Tobacco Use Status: Never used Tobacco e-Cigarette/Vaping Use: Never Used service: No Current occupational status: retired Cognitive needs: No Hearing needs: No Vision needs: Yes Course Course Course Narrative: This is an RME: Additional HPI, ROS, PE not included below will be deferred to primary provider. 83 yo female w/ a PMH of DM presenting with right sided abdominal pain x 5 days. Also reports right sided arm and leg numbness and weakness. No urinary sx. No n/v/d. Plan - UA, labs Discharge Plan Discharge Prescriptions: No Action albuterol sulfate [ProAir HFA] 90 mcg/actuation HFA aerosol inhaler 2 puff inhalation Q8H Qty: 8.5 3RF (DME) lancets 30 gauge misc See Rx Instructions .ROUTE QID Qty: 300 3RF Rx Instructions: As directed to test blood sugar up to 3 times per day (DME) pen needle, diabetic 32 gauge x 1/4 needle See Rx Instructions subcut TID Qty: 400 3RF Rx Instructions: As directed to inject insulin four times a day atorvastatin [Lipitor] 40 mg tablet 40 mg PO DAILY Qty: 90 3RF (DME) insulin syringe-needle U-100 0.5 mL 31 gauge x 5/16 syringe See Rx Instructions .ROUTE .MEDSUPPLY Qty: 400 3RF Rx Instructions: Use to inject insulin 4 times per day insulin glargine [Lantus U-100 Insulin] 100 unit/mL solution 40 unit subcut DAILY Qty: 40 1RF (DME) Accu-Chek Guide test strips Strip See Rx Instructions .Route Qty: 100 5RF Rx Instructions: test blood sugar 3 times per day (DME) Accu-Chek Guide test strips Strip See Rx Instructions .ROUTE .MEDSUPPLY Qty: 10 Rx Instructions: As directed alcohol swabs [Alcohol Pads] Pads, Medicated topical DAILY PRN (Reason: Disinfection) (DME) diabetic supplies, miscellan. Misc See Rx Instructions .ROUTE .MEDSUPPLY Qty: 1 0RF Rx Instructions: diabetic shoes albuterol sulfate [ProAir HFA] 90 mcg/actuation HFA aerosol inhaler 2 puff inhalation Q6H PRN (Reason: shortness of breath or wheezing) Qty: 8.5 3RF Rx Instructions: brand name only insulin lispro 100 unit/mL solution See Rx Instructions subcut USEASDIRECTD 90 Days Qty: 30 3RF Rx Instructions: 120-200 4units, 200-300 8units, >300 10 units subcut 3times at day at mealtime subcut use as directed; cholecalciferol (vitamin D3) [Vitamin D3] 50 mcg (2,000 unit) capsule 50 mcg PO DAILY Qty: 90 3RF
[2023-09-24 14:01] LABS: MANUAL DIFF FLAG NO
[2023-09-24 14:05] LABS: Appearance Urine Clear; Basophils Percent Auto 0.5 % (0-2); Color Urine Yellow; Eosinophils Absolute Auto 0.2 X10*3/uL (0.0-0.4); Eosinophils Percent Auto 4.1 % (0-4); Glucose Urine UA Negative (Negative); Hematocrit 36.9 % (37.0-47.0); Leukocyte Esterase Urine Small (1+) (Negative); Lymphocytes Absolute Auto 1.7 X10*3/uL (1.2-4.9); Lymphocytes Percent Auto 38.6 % (20-40); Mean Corpuscular HGB Conc 32.5 g/dl (31.0-35.0); Mean Corpuscular Hemoglobin 31.3 pg (27.0-33.0); Mean Corpuscular Volume 96.1 fL (80.0-98.0); Mean Platelet Volume 11.1 fL (9.4-12.3); Monocytes Absolute Auto 0.5 X10*3/uL (0.1-1.2); Monocytes Percent Auto 10.8 % (2-11); Nitrite Urine Negative (Negative); PH 5.5 (5.0-9.0); Platelet Count 120 X10*3/uL (160-400); Red Blood Count 3.84 X10*6/uL (4.20-5.50); Red Cell Distribution Width 12.6 % (11.0-16.0); Specific Gravity - Urine 1.015 (1.005-1.025); UMIC TRIGGER UACC YES; Urine Blood Negative (Negative); Urine Ketones Negative (Negative); Urine Protein Negative (Neg-Trace); White Blood Count 4.4 X10*3/uL (4.8-10.8)
[2023-09-24 14:07] LABS: Bacteria Urine 2+ (None Seen); Hyaline Casts Urine 0-2 /LPF (0-2); RBC Urine 0-2 /HPF (0-2); UACC Culture Trigger YES
[2023-09-24 14:18] LABS: Alanine Aminotransferase 15 U/L (0-31); Albumin Level 3.7 g/dL (3.5-5.0); Alkaline Phosphatase 105 U/L (39-117); Anion Gap 9 (12-20); Aspartate Amino Transferase 33 U/L (5-31); Bilirubin Total 0.6 mg/dL (0.0-1.0); Blood Urea Nitrogen 15 mg/dL (9-16); Calcium 10.3 mg/dL (8.4-10.2); Carbon Dioxide 26 mmol/L (22-29); Chloride 106 mmol/L (96-108); Creatinine Clr Calc Pharmacy 54.8; Estimated Glomerular Filt Rate > 60; Glucose Random 134 mg/dL (60-115); Lipase 11 U/L (8-78); Magnesium 1.9 mg/dL (1.6-2.6); Potassium 4.2 mmol/L (3.3-5.1); Sodium 137 mmol/L (135-145); Total Protein 9.1 g/dL (6.5-8.0)
[2023-09-24 16:08] VITALS: BP 164/68; PULSE 61; TEMP 36.5; O2SAT 98
[2023-09-24 16:27] LABS: Glucose, Whole Blood 231 mg/dL (60-115)
[2023-09-24 16:37] VITALS: BP 151/68; PULSE 61; RESP 20; O2SAT 98
--- NOTE | 2023-09-24 17:10 | ED_ITS ---
HPI - General Adult General Chief complaint: General Medical Stated complaint: R Side Pain No Injury Time Seen by Provider: 09/24/23 16:28 History of Present Illness HPI narrative: Patient is an 83-year-old female presents today with having right-sided abdominal pain. There is no specific trigger. The pain is dull. Patient status post tubal ligation many years ago. No pain on urination. No history of kidney stones in the past. No nausea no vomiting or diarrhea. Patient is from home. Related Data Home Medications Medication Instructions Recorded Confirmed alcohol swabs (Alcohol Pads) pad topical DAILY PRN Disinfection 09/27/20 12/05/22 blood sugar diagnostic #10 ea 09/27/20 12/07/22 Previous Rx's Medication Instructions Recorded diabetic supplies, miscellan. #1 ea 09/27/20 ProAir HFA 90 mcg/actuation 2 puff inhalation Q6H PRN 09/04/21 aerosol inhaler (albuterol sulfate) shortness of breath or wheezing #8.5 grams albuterol sulfate 90 mcg/actuation 2 puff inhalation Q8H asthma #8.5 07/06/22 aerosol inhaler (ProAir HFA) grams lancets 30 gauge #300 ea 07/23/22 pen needle, diabetic 32 gauge x #400 ea 07/23/22 1/4 atorvastatin 40 mg tablet (Lipitor) 40 mg PO DAILY #90 tabs 07/30/22 insulin syringe-needle U-100 0.5 #400 ea 08/01/22 mL 31 gauge x 5/16 blood sugar diagnostic (Accu-Chek #100 ea 08/09/22 Guide test strips) insulin glargine 100 unit/mL 40 unit (0.4 mL) subcut DAILY #40 08/09/22 subcutaneous solution (Lantus mL U-100 Insulin) cholecalciferol (vitamin D3) 50 50 mcg PO DAILY #90 caps 12/05/22 mcg (2,000 unit) capsule (Vitamin D3) insulin lispro 100 unit/mL See Rx Instructions subcut 12/05/22 subcutaneous solution USEASDIRECTD 90 days #30 mL cephalexin 500 mg capsule 500 mg PO Q8H 7 days #21 caps 09/24/23 Allergies Allergy/AdvReac Type Severity Reaction Status Date / Time Seasonal Allergies Allergy Runny Nose Verified 09/24/23 13:16 Review of Systems 2 Review of Systems: Positive abdominal pain no nausea no vomiting no diarrhea PMFSH Past Medical History Medical History Fibromyalgia Cough Annual physical exam Rib pain on left side Osteoarthritis of both knees Obesity Neuropathy of both feet Diabetes Hyperlipidemia Osteoporosis Surgical History Status post cataract surgery S/P lumpectomy, left breast No pertinent past surgical history Family History Family History Father Colon cancer Mother Diabetes mellitus Other Substance use disorder Social History Social History Household Members: None Housing: Apartment Alcohol intake: never Patient Tobacco Use Status: Never used Tobacco e-Cigarette/Vaping Use: Never Used Advance Directives: No Advance Directives Information Provided: Yes service: No Current occupational status: retired Cognitive needs: No Hearing needs: No Vision needs: Yes Physical Exam ED Vital Signs: Vital Signs - 24 hr 09/24/23 13:16 09/24/23 16:08 09/24/23 16:37 Temperature 98.0 F 97.7 F Pulse Rate 72 61 61 Respiratory Rate 20 20 Blood Pressure 198/76 H 164/68 H 151/68 H Pulse Oximetry 97 98 98 Oxygen Delivery Method Room Air Room Air Room Air 09/24/23 18:03 09/24/23 19:37 Temperature Pulse Rate 64 59 Respiratory Rate 14 Blood Pressure 155/84 H 153/61 H Pulse Oximetry 100 Oxygen Delivery Method Room Air BMI result Body Mass Index 31.6 Appearance: Alert. Oriented X3. No acute distress. Eyes: Pupils equal, round and reactive to light. ENT: Pharynx normal. Neck: Normal inspection. Neck supple. No lymph nodes noted. No crepitus CVS: Normal heart rate and rhythm. Pulses normal. Normal S1 and S2 Respiratory: No respiratory distress. Breath sounds normal. No Wheezing. No rales Abdomen: Soft and nontender. No rigidity. No distention. good BS x4 Skin: Skin warm and dry. Normal skin color. Normal skin turgor. Extremities: No lower extremity edema. Neurovascular intact to all extremities. No Lacerations. No Rash Neuro: Oriented X 3. No motor deficit. No sensory deficit. Moving all extermities. No slurred speech Medications Administered Discontinued Medications Generic Name Dose Route Start Last Admin Trade Name Mili PRN Reason Stop Dose Admin Sodium Chloride 500 mls @ 999 mls/hr 09/24/23 17:15 09/24/23 18:07 Ns IV 09/24/23 17:45 Infused .Q31M CHAPO Infusion Iohexol 85 ml 09/24/23 18:32 09/24/23 18:32 Iohexol 350 Mg/Ml 100 Ml Infus..Btl IV 09/24/23 18:33 85 ml ONCE ONE Administration Medical Decision Making Medical Decision Making [facility] Narrative: Patient 83 years old presents today with having right-sided abdominal pain. CT scan of the abdomen pelvis showed no acute evidence of obstruction no abscess no perforation. I reviewed radiology's reading. Patient's urine showed a question UTI. Will start patient on antibiotics. There is a slight under distension noted in the colon. Patient has not had a colonoscopy done in the past. Will refer patient to GI for further evaluation. She is currently in stable condition. Differential Diagnosis Differential Diagnoses: The differential diagnosis associated with the presentation includes Appendicitis, cholecystitis, pancreatitis, obstruction, abscess, perforation Admission/Observation Consideration of admission/observation: Escalation of care including admission/observation considered patient does not meet admission criteria Lab Data [facility] Lab Attestation statement: I reviewed the patient's lab results. 09/24/23 13:55 09/24/23 13:55 Labs: Lab Results 09/24/23 09/24/23 Range/Units 13:55 16:21 WBC 4.4 L (4.8-10.8) X10*3/uL RBC 3.84 L (4.20-5.50) X10*6/uL Hgb 12.0 (12.0-16.0) g/dl Hct 36.9 L (37.0-47.0) % MCV 96.1 (80.0-98.0) fL MCH 31.3 (27.0-33.0) pg MCHC 32.5 (31.0-35.0) g/dl RDW 12.6 (11.0-16.0) % Plt Count 120 L (160-400) X10*3/uL MPV 11.1 (9.4-12.3) fL Immature Gran % (Auto) 0.0 (0.0-0.4) % Neut % (Auto) 46.0 (45-73) % Lymph % (Auto) 38.6 (20-40) % Fountain % (Auto) 10.8 (2-11) % Eos % (Auto) 4.1 H (0-4) % Baso % (Auto) 0.5 (0-2) % Lymph # (Auto) 1.7 (1.2-4.9) X10*3/uL [place] # (Auto) 0.5 (0.1-1.2) X10*3/uL Eos # (Auto) 0.2 (0.0-0.4) X10*3/uL Baso # (Auto) 0.0 (0.0-0.2) X10*3/uL Abs Immat Gran (auto) 0.00 (0.00-0.03) X10*3/uL Absolute Neuts (auto) 2.0 (2.0-8.3) x10*3/uL Absolute Nucleated RBC 0.000 (0.0-0.012) X10*3/uL Nucleated RBC % (auto) 0.0 (0.0-0.2) /100WBC Sodium 137 (135-145) mmol/L Potassium 4.2 (3.3-5.1) mmol/L Chloride 106 (96-108) mmol/L Carbon Dioxide 26 (22-29) mmol/L Anion Gap 9 L (12-20) BUN 15 (9-16) mg/dL Creatinine 0.81 (0.5-1.4) mg/dL Estim Creat Clear Calc 54.8 Estimated GFR > 60 POC Glucose 231 H (60-115) mg/dL Random Glucose 134 H (60-115) mg/dL Calcium 10.3 H D (8.4-10.2) mg/dL Magnesium 1.9 (1.6-2.6) mg/dL Total Bilirubin 0.6 (0.0-1.0) mg/dL AST 33 H (5-31) U/L ALT 15 (0-31) U/L Alkaline Phosphatase 105 (39-117) U/L Total Protein 9.1 H (6.5-8.0) g/dL Albumin 3.7 (3.5-5.0) g/dL Lipase 11 (8-78) U/L Urine Color Yellow Urine Appearance Clear Urine pH 5.5 (5.0-9.0) Ur Specific [place] 1.015 (1.005-1.025) Urine Protein Negative (Neg-Trace) mg/dL Urine Glucose (UA) Negative (Negative) mg/dL Urine Ketones Negative (Negative) mg/dL Urine Blood Negative (Negative) Urine Nitrite Negative (Negative) Ur Leukocyte Esterase Small (1+) H (Negative) Urine RBC 0-2 (0-2) /HPF Urine WBC 11-20 H (0-5) /HPF Ur Squamous Epith Cells 3-5 (0-2) /HPF Urine Bacteria 2+ (None Seen) Hyaline Casts 0-2 (0-2) /LPF Independent Interpretation I performed an independent interpretation of an: CT Scan Interpretation: no gross acute finding Radiology Impression Discussion of test interpretation with radiology: I have reviewed the radiologist's reading. Prescription Management I considered prescription management with: Antibiotic will be given Keflex for UTI Chronic Conditions Patient?s care impacted by: Hypertension Discharge Plan Discharge Clinical Impression: Urinary tract infection Patient Disposition: Home, Self-Care Instructions: Urinary Tract Infection in Older Adults (ED) Prescriptions: New cephalexin 500 mg capsule 500 mg PO Q8H 7 Days Qty: 21 0RF No Action albuterol sulfate [ProAir HFA] 90 mcg/actuation HFA aerosol inhaler 2 puff inhalation Q8H Qty: 8.5 3RF (DME) lancets 30 gauge misc See Rx Instructions .ROUTE QID Qty: 300 3RF Rx Instructions: As directed to test blood sugar up to 3 times per day (DME) pen needle, diabetic 32 gauge x 1/4 needle See Rx Instructions subcut TID Qty: 400 3RF Rx Instructions: As directed to inject insulin four times a day atorvastatin [Lipitor] 40 mg tablet 40 mg PO DAILY Qty: 90 3RF (DME) insulin syringe-needle U-100 0.5 mL 31 gauge x 5/16 syringe See Rx Instructions .ROUTE .MEDSUPPLY Qty: 400 3RF Rx Instructions: Use to inject insulin 4 times per day insulin glargine [Lantus U-100 Insulin] 100 unit/mL solution 40 unit subcut DAILY Qty: 40 1RF (DME) Accu-Chek Guide test strips Strip See Rx Instructions .Route Qty: 100 5RF Rx Instructions: test blood sugar 3 times per day (DME) Accu-Chek Guide test strips Strip See Rx Instructions .ROUTE .MEDSUPPLY Qty: 10 Rx Instructions: As directed alcohol swabs [Alcohol Pads] Pads, Medicated topical DAILY PRN (Reason: Disinfection) (DME) diabetic supplies, miscellan. Misc See Rx Instructions .ROUTE .MEDSUPPLY Qty: 1 0RF Rx Instructions: diabetic shoes albuterol sulfate [ProAir HFA] 90 mcg/actuation HFA aerosol inhaler 2 puff inhalation Q6H PRN (Reason: shortness of breath or wheezing) Qty: 8.5 3RF Rx Instructions: brand name only insulin lispro 100 unit/mL solution See Rx Instructions subcut USEASDIRECTD 90 Days Qty: 30 3RF Rx Instructions: 120-200 4units, 200-300 8units, >300 10 units subcut 3times at day at mealtime subcut use as directed; cholecalciferol (vitamin D3) [Vitamin D3] 50 mcg (2,000 unit) capsule 50 mcg PO DAILY Qty: 90 3RF Referrals: Ciara Cortez MD [Physician] - 09/26/23 Print Language: Guyanese
[2023-09-24] MEDS: 0.9 % Sodium Chloride 500 ML 999 ML IV (17:28)
[2023-09-24 18:03] VITALS: BP 155/84; PULSE 64; RESP 14; O2SAT 100
[2023-09-24] MEDS: iohexoL 350 MG/ML 100 ML INFUS..BTL 85 ML IV (18:32)
[2023-09-24 19:37] VITALS: BP 153/61; PULSE 59
[2023-09-24] MEDS: cefTRIAXone sodium 1 GM in 0.9 % Sodium Chloride 50 ML IV (20:07)
== END 2023-09-24 20:24 | disposition home or self-care (01) ==
PROVIDERS: Physician Assistant; Emergency Provider Emergency Medicine Emergency Medical Services; PCP Internal Medicine
DX: N39.0 Urinary tract infection, site not specified (principal); B96.20 Unspecified Escherichia coli [E. coli] as the cause of diseases classified elsewhere; E11.9 Type 2 diabetes mellitus without complications; E78.5 Hyperlipidemia, unspecified; Z98.51 Tubal ligation status; Z79.4 Long term (current) use of insulin
CPT/HCPCS: 36415; 74177; 80053; 81001; 81003; 82947; 83690; 83735; 85025; 87086; 87088; 87186; 96361; 96374; 99284; J0696; Q9967